=== PATIENT | female | born 1980 | race Two or more races ===

== ENCOUNTER 2025-05-21 10:00 | Emergency (ER) | payer OTHER, SELFPAY ==
--- NOTE | ~2025-05-21 | XR_ITS ---
EXAMINATION: XR CERVICAL SPINE CLINICAL INFORMATION: neck pain COMPARISON: None available. TECHNIQUE: 3 views of the cervical spine were obtained. FINDINGS: There is no significant scoliosis. There is mild reversal of the normal lordosis, nonspecific. There is no subluxation or traumatic malalignment. There is no fracture, compression deformity, or suspicious bone lesion. There is mild disc degeneration at C6-7. Disc spaces otherwise preserved. The craniocervical junction, and C1-2 articulation are intact and aligned. There is normal facet alignment. No significant facet arthropathy. There is no prevertebral soft tissue abnormality. Imaged lung apices are clear. XR/XR cervical spine 3V IMPRESSION: 1. No acute bony or soft tissue abnormality of the cervical spine. 2. Mild disc degeneration at C6-7 Electronically signed by: Joao Whittaker MD 05/21/2025 11:49 AM EDT
[2025-05-21 10:10] VITALS: BP 138/59; PULSE 63; RESP 20; TEMP 36.6; O2SAT 99; BMI 34.0
--- NOTE | 2025-05-21 10:10 | ED_ITS ---
HPI - General Adult General Stated complaint: neck spasms Related Data Allergies Allergy/AdvReac Type Severity Reaction Status Date / Time adhesive tape Allergy Rash Verified 05/21/25 10:10 bee pollen (bee stings) Allergy Rash Verified 05/21/25 10:10 latex Allergy Rash Verified 05/21/25 10:10 Course Course Course Narrative: This is an RME: Additional HPI, ROS, PE not included below will be deferred to primary provider. RME assessment and note performed by: Leonela Laguna PA-C This is a [id number], with a hx of asthma, DDD with two disectomies with spinal fusion, chronic pain, who presents to the ER with complaints of neck spasms x 3 days. Reporting right sided. Reports that she has had multiple back surgeries. Has been taking tizanidine, naproxen, neck massagers without any relief. No injury or trauma. Reporting some headache, no dizziness, blurred vision. No fevers. No midline spine tenderness. TTP overlying the right cervical paraspinous muscles Plan: Needs medications for relief Discharge Plan Discharge Print Language: [place]
--- NOTE | 2025-05-21 11:20 | ED.NECK ---
HPI - Neck Pain/Injury General Chief Complaint: Neck Pain/Injury Stated Complaint: neck spasms Time Seen by Provider: 05/21/25 11:14 Source: patient Mode of arrival: ambulatory Limitations: no limitations History of Present Illness ED Provider: WILLY Armenta HPI Narrative: This is a 44-year-old female past medical history significant for obesity who presents to the emergency department with 3 days of significant right-sided neck spasm. She reports she is extremely uncomfortable and she has tried everything that she has at home for neck spasm she has been taking tizanidine 4 mg q.8 hours, naproxen, tiger balm, applying heat with little to no relief. She tells me she has history of this in the past however this time very severe. She denies associated falls or trauma. Denies fevers, chills upper extremity clumsiness/weakness, changes in urinary/bowel habits. Related Data Previous Rx's ?Medication ?Instructions ?Recorded ketorolac 10 mg tablet 10 mg PO TID PRN pain 5 days #15 05/21/25 tabs methocarbamol 750 mg tablet 750 mg PO TID #14 tabs 05/21/25 prednisone 20 mg tablet 40 mg (2 x 20 mg) PO DAILY 5 days 05/21/25 #10 tabs Allergies Allergy/AdvReac Type Severity Reaction Status Date / Time adhesive tape Allergy Rash Verified 05/21/25 10:10 bee pollen (bee stings) Allergy Rash Verified 05/21/25 10:10 latex Allergy Rash Verified 05/21/25 10:10 Review of Systems Review of Systems: Yes all other systems are reviewed and are negative PMFSH Past Medical History Attestation statement: The following information was validated with the patient. Source: old records reviewed and nursing notes reviewed Social History Social History Smoked in Last 30 Days: No Use of substances other than those prescribed or required for medical reasons: No Advance Directives: No Advance Directives Information Provided: Yes Patient : No Physical Exam Exam: Exam: Appearance: Alert.? Oriented X3.? No acute distress.? Head: Normocephalic, atraumatic, no step-offs or deformities Eyes: Pupils equal, round and reactive to light.? ENT: Pharynx normal.? Neck: Normal inspection.? There is tenderness to palpation to bilateral paraspinous muscles in the cervical region right greater than left. Tenderness also to posterior scapula and deltoid. Negative Spurling sign. Patient has painful range of motion and reduced range of motion in all directions secondary to pain and stiffness. No meningeal signs CVS: Pulses normal.? Respiratory: No respiratory distress.? Skin: Skin warm and dry.? Normal skin color.? Normal skin turgor.? Extremities: No lower extremity edema.? No calf ttp. 5/5 strength to bilateral upper and lower extremities. Normal hand market development trainer bilaterally. No wrist drop. Negative Laverne sign. Back: No midline tenderness, no C-spine tenderness, full range of motion, no CVA tenderness bilaterally Neuro: Oriented X 3.? No motor deficit.? No sensory deficit. CN 2-12 intact Vital Signs: Vital Signs: Last Vital Signs Temp 98.5 F 05/21/25 16: Pulse 62 05/21/25 16:01 Resp 12 05/21/25 16:01 BP 129/68 05/21/25 16:01 Pulse Ox 100 05/21/25 16:01 O2 Del Method Room Air 05/21/25 16:01 BMI result Body Mass Index 34.0 vss Course Reevaluation(s) Reevaluation #1: Patient's x-ray no acute bony or soft tissue abnormality of cervical spine mild disc degeneration C6-7. Patient is still quite uncomfortable Time: 12:00 Reevaluation #2: Patient was requesting to leave however she still reports significant discomfort to her neck and spasm. She did decline the 2nd dose of Valium and Dilaudid I explained to her that this may help. She is now agreeable to this. She will get a ride home afterward Time: 15:44 Reevaluation #3: Patient feeling better. She will get a ride home. I advised her to follow up with PCP or fireworks display specialist. She may require an MRI upon further questioning she does tell me she gets neck pain and upper extremity numbness and tingling bilaterally. Time: 17:28 Medications Administered Discontinued Medications Generic Name Dose Route Start Last Admin Trade Name Freq PRN Reason Stop Dose Admin Dexamethasone Sodium Phosphate 10 mg 05/21/25 11:21 05/21/25 11:43 Dexamethasone Sod Phosphate 10 Mg/Ml Vial IVPUSH 05/21/25 11:22 10 mg ONCE ONE Administration Diazepam 2.5 mg 05/21/25 11:20 05/21/25 11:41 Diazepam 10 Mg/2 Ml Cartridge IVPUSH 05/21/25 11:21 2.5 mg STAT STA Administration Diazepam 2.5 mg 05/21/25 12:59 05/21/25 13:18 Diazepam 10 Mg/2 Ml Cartridge IVPUSH 05/21/25 13:00 Not Given STAT STA Diazepam 2.5 mg 05/21/25 15:27 05/21/25 16:02 Diazepam 10 Mg/2 Ml Cartridge IVPUSH 05/21/25 15:28 2.5 mg STAT STA Administration Hydromorphone HCl 1 mg 05/21/25 14:10 05/21/25 15:29 Hydromorphone Hcl 1 Mg/Ml Syringe IVPUSH 05/21/25 14:11 Not Given ONCE ONE Protocol Hydromorphone HCl 1 mg 05/21/25 15:27 05/21/25 16:04 Hydromorphone Hcl 1 Mg/Ml Syringe IVPUSH 05/21/25 15:28 1 mg ONCE ONE Administration Protocol Acetaminophen 1,000 mg in 100 mls @ 400 mls/hr 05/21/25 11:20 05/21/25 13:19 Ofirmev IV 05/21/25 11:34 Infused ONCE ONE Infusion Ketorolac Tromethamine 15 mg 05/21/25 11:20 05/21/25 11:43 Ketorolac Tromethamine 15 Mg/Ml Vial IVPUSH 05/21/25 11:21 15 mg ONCE ONE Administration Lidocaine 1 patch 05/21/25 11:22 05/21/25 11:50 Lidocaine 4 % Patch Adh..Patch TRANSDERMA 05/21/25 11:23 1 patch ONCE ONE Administration Protocol Methocarbamol 750 mg 05/21/25 14:40 05/21/25 15:08 Methocarbamol 750 Mg Tablet PO 05/21/25 14:41 750 mg ONCE ONE Administration Medical Decision Making Medical Decision Making MDM Narrative: 44-year-old female presents with progressively worsening neck spasms ongoing for 3 days. Physical exam Normal inspection.? There is tenderness to palpation to bilateral paraspinous muscles in the cervical region right greater than left. Tenderness also to posterior scapula and deltoid. Negative Spurling sign. Patient has painful range of motion and reduced range of motion in all directions secondary to pain and stiffness. No meningeal signs History and physical exam consistent with torticollis/cervical spasm. Unlikely cord compression, cervical myelopathy, epidural abscess. No focal neurological deficits. Plan will give IV acetaminophen dexamethasone Valium Toradol and lidocaine patch. Will obtain x-ray this see of the cervical lordosis is changed. No red flag symptoms no indication for MRI Differential Diagnosis Differential Diagnoses: The differential diagnosis associated with the presentation includes (History and physical exam consistent with torticollis/cervical spasm. Unlikely cord compression, cervical myelopathy, epidural abscess. No focal neurological deficits.) Admission/Observation Consideration of admission/observation: Escalation of care including admission/observation considered (unlikely ) Independent Interpretation I performed an independent interpretation of an: Plain X-Ray Radiology Impression Discussion of test interpretation with radiology: I have reviewed the radiologist's reading. Chronic Conditions Patient?s care impacted by: Other (obesity ) Critical Care Time Critical Care Time Critical Care Time: Yes Total Critical Care Time: 35 Attestation: I attest to this time spent taking care of the patient, obtaining history, physical, reviewing labs, imaging, treatment of patients condition +/- specialist/hospitalist consult +/- procedure Discharge Plan Discharge Clinical Impression: Torticollis, Cervical paraspinal muscle spasm Patient Disposition: Home, Self-Care Instructions: Muscle Spasm (ED) Additional Instructions: Take your medications as prescribed. If you were prescribed antibiotics today, it is important that you take your medication to their entirety, do not skip any doses, do not finish them early. Follow-up with your primary care provider this week. Return to the emergency department with new or worsening symptoms. Such as fevers, chills, chest pain, shortness of breath, nausea, vomiting, dizziness, headache, vision changes, lethargy In case of emergency call 911 I have sent you Robaxin you can take it 3 times a day, 750 mg. Please follow-up with your PCP or pain management. You may need trigger point injections or epidural injections if pain persists Do not take methocarbamol/Robaxin with tizanidine. Toradol has been sent to your pharmacy, you tolerated this well in the department. Please take this as prescribed do not take this with ibuprofen, or other NSAIDs, do not mix this with alcohol. Side effects of this medication including increased risk for bleeding and possible kidney injury. Please start her prednisone in 3 days. Prescriptions: New methocarbamol 750 mg tablet 750 mg PO TID Qty: 14 0RF prednisone 20 mg tablet 40 mg PO DAILY 5 Days Qty: 10 0RF ketorolac 10 mg tablet 10 mg PO TID PRN (Reason: pain) 5 Days Qty: 15 0RF Rx Instructions: Tolerated IM or IV in department Referrals: Physician,Unknown J [Primary Care Provider, Medical] Print Language: Danish
[2025-05-21 11:24] VITALS: BP 117/70; PULSE 58; RESP 18; TEMP 37.3; O2SAT 100
--- NOTE | 2025-05-21 11:38 | PC.NURSE ---
Pt c/o neck spasms, shoulder pain x 3 days. Pain /. Home remedies and medications ineffective. Giving meds now
[2025-05-21] MEDS: diazePAM 10 MG/2 ML CARTRIDGE 2.5 MG IVPUSH ×2 (11:41→16:02)
--- NOTE | 2025-05-21 11:46 | PC.NURSE ---
Pt reports burning for a minute in her vagina following the dexmethasone. Vallium caused dizziness.
[2025-05-21] MEDS: Lidocaine 4 % Patch ADH..PATCH 1 PATCH TRANSDERMA (11:50)
--- NOTE | 2025-05-21 13:18 | PC.NURSE ---
Pt refused more vallium because she is driving home.
[2025-05-21 13:56] VITALS: BP 115/61; PULSE 58; RESP 18; TEMP 36.8; O2SAT 98
--- NOTE | 2025-05-21 14:22 | PC.NURSE ---
Pt is nervous about taking narcotics because of the drive home. She requests a different muscle relaxer to take at home. She currently takes tizanidine 8mg at night and naproxen, but this has not been very effective. She feels slightly worse after being medicated here. Reports pressure in her head.
--- NOTE | 2025-05-21 15:11 | PC.NURSE ---
Pt ready to discharge
[2025-05-21 16:01] VITALS: BP 129/68; PULSE 62; RESP 12; TEMP 36.9; O2SAT 100
--- NOTE | 2025-05-21 17:36 | PC.NURSE ---
Pt reports head pressure is gone. Spouse will drive her home.
== END 2025-05-21 17:47 | disposition home or self-care (01) ==
PROVIDERS: Emergency Provider Emergency Medicine Emergency Medical Services
DX: M43.6 Torticollis (principal); M62.838 Other muscle spasm; M50.323 Other cervical disc degeneration at C6-C7 level; Z79.899 Other long term (current) drug therapy
CPT/HCPCS: 72040; 96365; 96366; 96375; 96376; 99284; J0131; J1100; J1171; J1885; J3360

== ENCOUNTER → 2025-05-21 11:25 | Outpatient (BNV) | payer OTHER, SELFPAY | PROVIDERS: Visit Provider Radiology Diagnostic Radiology | DX: M50.323 Other cervical disc degeneration at C6-C7 level (principal) | CPT/HCPCS: 72040 ==

== ENCOUNTER 2025-06-10 19:33 | Emergency (ER) | payer OTHER, SELFPAY ==
[2025-06-10 19:43] VITALS: BP 133/87; PULSE 79; RESP 16; TEMP 36.8; O2SAT 97; BMI 35.9
--- NOTE | 2025-06-10 19:56 | ED_ITS ---
HPI - General Adult General Chief complaint: Abdominal Pain Stated complaint: pain on back radiating to the front Time Seen by Provider: 06/10/25 21:59 Source: patient, RN notes reviewed and old records reviewed Mode of arrival: ambulatory Limitations: no limitations History of Present Illness ED Provider: Paul HARRELL narrative: 44-year-old female presents for evaluation of right lower back pain that radiates around to her abdomen. She reports a long history of chronic neck and back pain. She states that for the last few days she has had worsening right mid back pain She reports today she has been unable to stand and has significant pain with bending over or moving all She reports her pain is constant but worse with any kind of movement. She denies any GI symptoms including nausea, vomiting, diarrhea. Denies any cough or shortness of breath She does report that she has pain in the right mid back with deep breathing Denies any history of DVT, PE, she is not anticoagulated She has been treated in the past for back pain with multiple medications including Toradol, meloxicam, prednisone, oxycodone, Flexeril She has a history of kidney stones but states that this does not feel quite the same She denies any burning with urination, urinary frequency or blood in the urine Denies any recent trauma Related Data Previous Rx's ?Medication ?Instructions ?Recorded ketorolac 10 mg tablet 10 mg PO TID PRN pain 5 days #15 05/21/25 tabs methocarbamol 750 mg tablet 750 mg PO TID #14 tabs 06/05 prednisone 20 mg tablet 40 mg (2 x 20 mg) PO DAILY 5 days 05/21/25 #10 tabs diazepam 5 mg tablet (Valium) 5 mg PO BID PRN muscle s pasm #14 06/10/25 tabs Allergies Allergy/AdvReac Type Severity Reaction Status Date / Time adhesive tape Allergy Rash Verified 06/10/25 19:45 bee pollen (bee stings) Allergy Rash Verified 06/10/25 19:45 latex Allergy Rash Verified 06/10/25 19:45 sumatriptan (From Imitrex) AdvReac Unknown Verified 06/10/25 19:45 Review of Systems 2 Constitutional: Constitutional: Denies body ache(s), Denies chills, Denies fever(s) and Denies headache(s) Eyes: Eyes: Denies blurry vision ENT: Denies vertigo, Denies dizziness, Denies dry mouth and Denies headache(s) Cardiovascular: Cardiovascular: Denies chest pain and Denies dyspnea on exertion Respiratory: Respiratory: Denies cough and Denies dyspnea on exertion Gastrointestinal: Gastrointestinal: Reports abdominal pain, Denies nausea and Denies vomiting Musculoskeletal: Musculoskeletal: Reports back pain Integumentary/Breasts: Skin/Breast: Denies rash Neurologic: Denies vertigo, Denies dizziness and Denies headache(s) Psychiatric: Psychiatric: Denies anxiety PMFSH Social History Social History Alcohol intake: never Smoked in Last 30 Days: No Use of substances other than those prescribed or required for medical reasons: No Advance Directives: No Advance Directives Information Provided: No Do you have a plan to hurt others: No Plan Physical Exam ED Vital Signs: Vital Signs - 24 hr 06/10/25 19:43 06/10/25 21:31 Temperature 98.2 F 98.2 F Pulse Rate 79 68 Respiratory Rate 16 18 Blood Pressure 133/87 121/82 Pulse Oximetry 97 98 Oxygen Delivery Method Room Air Room Air BMI result Body Mass Index 35.9 Const General: healthy appearing, comfortable, no acute distress, alert and awake Nutritional Appearance: well nourished Orientation/consciousness: patient oriented x3 HENMT Head: Yes normocephalic and Yes atraumatic Eyes Eyelids: Yes eyelids normal Conjunctivae: conjunctivae normal Sclerae: sclerae normal Corneas: corneas normal Pupils: Equal, round and reactive pupils present EOM: EOMs intact bilaterally Neck Neck: Yes full ROM Resp Effort & Inspection: normal respiratory effort, able to speak in complete sentences and not labored GI Other: No tenderness to the right flank, right upper quadrant and right lower quadrant. Inspection: No distended Palpation (GI): Soft to palpation, not firm, nontender, no guarding and not rigid Back/Spine/Pelvis Other: There is tenderness in the right thoracic paraspinous region. There is tenderness in the right posterior and mid axillary line. He has no vertebral tenderness, no step-offs deformities. No crepitus over the ribs. Straight leg raise negative on right Skin General skin exam: elasticity normal Neuro General: patient oriented x3 Cranial nerves: Yes Equal, round and reactive pupils present and Yes Bilaterally intact EOM present Cognition (Neuro): normal cognition Extrem Other: Moving all extremities well without any obvious deformities Course Course Course Narrative: RME: 44-year-old female presents to ED for right upper quadrant abdominal pain radiating to the back and flank area. Patient states history of kidney stones. Patient states decrease of appetite with nausea or vomiting. Labs ordered Medications Administered Discontinued Medications Generic Name Dose Route Start Last Admin Trade Name Meghann PRN Reason Stop Dose Admin Diazepam 6 mg 06/10/25 22:46 06/10/25 23:00 Diazepam 2 Mg Tablet PO 06/10/25 22:47 6 mg ONCE ONE Administration Medical Decision Making Medical Decision Making [facility] Narrative: 44-year-old female with a history of chronic back pain presents for evaluation of back pain that radiates around her abdomen. She reports her pain does not typically radiate around to her abdomen. She has no GI or symptoms. She has tenderness to the right mid back but no tenderness to the abdomen. She had labs ordered that are unremarkable, she does not have any leukocytosis, she does have a mild anemia with a hemoglobin 11.5, no active bleeding. There was no left shift. She had chemistries ordered that did not show any concerning abnormalities, electrolytes within normal range. Renal function normal range, LFTs within normal range plan the patient is not present. Urinalysis shows trace esterase, no leukocytes, no nitrites, no blood. Given the patient's presentation, exam and lab results I feel that her pain is most likely related to musculoskeletal origin. I do not feel that any emergent imaging is indicated at this time. I discussed this with the patient and she agrees. We will treat her symptoms with diazepam. She was encouraged not to mix this with any of her other muscle relaxers at home. She will follow up with the outpatient providers Differential Diagnosis Differential Diagnoses: The differential diagnosis associated with the presentation includes Muscle strain Radiculopathy Abdominal pain Cholelithiasis Acute cholecystitis Obstructive uropathy Constipation Lab Data [facility] Lab Attestation statement: I reviewed the patient's lab results. As above 06/10/25 20:02 06/10/25 20:02 Labs: Lab Results 06/10/25 06/10/25 Range/Units 20:02 21:23 WBC 8.6 (4.8-10.8) X10*3/uL RBC 4.18 L (4.20-5.50) X10*6/uL Hgb 11.5 L (12.0-16.0) g/dl Hct 34.7 L (37.0-47.0) % MCV 83.0 (80.0-98.0) fL MCH 27.5 (27.0-33.0) pg MCHC 33.1 (31.0-35.0) g/dl RDW 14.4 (11.0-16.0) % Plt Count 289 (160-400) X10*3/uL MPV 10.5 (9.4-12.3) fL Immature Gran % (Auto) 0.2 (0.0-0.4) % Neut % (Auto) 68.3 (45-73) % Lymph % (Auto) 23.8 (20-40) % [place] % (Auto) 5.9 (2-11) % Eos % (Auto) 1.5 (0-4) % Baso % (Auto) 0.3 (0-2) % Lymph # (Auto) 2.1 (1.2-4.9) X10*3/uL [place] # (Auto) 0.5 (0.1-1.2) X10*3/uL Eos # (Auto) 0.1 (0.0-0.4) X10*3/uL Baso # (Auto) 0.0 (0.0-0.2) X10*3/uL Abs Immat Gran (auto) 0.02 (0.00-0.03) X10*3/uL Absolute Neuts (auto) 5.9 (2.0-8.3) x10*3/uL Absolute Nucleated RBC 0.000 (0.0-0.012) X10*3/uL Nucleated RBC % (auto) 0.0 (0.0-0.2) /100WBC PT 11.3 (10.9-12.4) SEC INR 1.0 (0.9-1.1) APTT 33.6 (26.7-34.1) SEC Sodium 141 (135-145) mmol/L Potassium 3.8 (3.3-5.1) mmol/L Chloride 108 (96-108) mmol/L Carbon Dioxide 26 (22-29) mmol/L Anion Gap 11 L (12-20) BUN 9 (9-16) mg/dL Creatinine 0.97 (0.5-1.4) mg/dL Estim Creat Clear Calc 84.4 Estimated GFR > 60 Random Glucose 88 (60-115) mg/dL Calcium 8.3 L (8.4-10.2) mg/dL Total Bilirubin 0.3 (0.0-1.0) mg/dL AST 23 (5-31) U/L ALT 25 (0-31) U/L Alkaline Phosphatase 64 (39-117) U/L Total Protein 6.7 (6.5-8.0) g/dL Albumin 4.2 (3.5-5.0) g/dL Lipase 29 (8-78) U/L Beta HCG, Quant < 2 mIU/mL Urine Color Yellow Urine Appearance Clear Urine pH 7.0 (5.0-9.0) Ur Specific [place] 1.015 (1.005-1.025) Urine Protein Negative (Neg-Trace) mg/dL Urine Glucose (UA) Negative (Negative) mg/dL Urine Ketones Negative (Negative) mg/dL Urine Blood Negative (Negative) Urine Nitrite Negative (Negative) Ur Leukocyte Esterase Trace H (Negative) Urine RBC 0-2 (0-2) /HPF Urine WBC 0-5 (0-5) /HPF Ur Squamous Epith Cells 3-5 (0-2) /HPF Urine Bacteria Trace (None Seen) Hyaline Casts 0-2 (0-2) /LPF Urine Test NEGATIVE (NEGATIVE) Tests considered The following testing was considered but not selected: Considered CT abdomen pelvis without contrast to evaluate for obstructive uropathy but I felt it was not indicated due to no hematuria and normal renal function and a history exam not consistent with obstructive uropathy Discharge Plan Discharge Clinical Impression: Mid back pain on right side Patient Disposition: Home, Self-Care Instructions: Back Pain (ED) Additional Instructions: Your workup in the ER today was reassuring This includes your labs, your urinalysis. There was no blood in the urine to suggest a kidney stone. Your liver enzymes were normal and less likely a gallbladder issue. I think your pain is most likely musculoskeletal in origin You may continue NSAIDs such as ibuprofen or meloxicam. You should not take more than 90 type of NSAID. Take diazepam as needed for muscle spasms. This may make you drowsy, do not drink alcohol or drive after taking it Prescriptions: New diazepam [Valium] 5 mg tablet 5 mg PO BID PRN (Reason: muscle spasm) Qty: 14 0RF No Action methocarbamol 750 mg tablet 750 mg PO TID Qty: 14 0RF prednisone 20 mg tablet 40 mg PO DAILY 5 Days Qty: 10 0RF ketorolac 10 mg tablet 10 mg PO TID PRN (Reason: pain) 5 Days Qty: 15 0RF Rx Instructions: Tolerated IM or IV in department Stand Alone Forms: Work/School Release Interventions: ED Discharge Assessment Last Done: 06/10/25 23:00 Discharge Date/Time: 06/10/25 23:50 Print Language: Slovak
[2025-06-10 20:08] LABS: MANUAL DIFF FLAG NO
[2025-06-10 20:09] LABS: Hematocrit 34.7 % (37.0-47.0); Hemoglobin 11.5 g/dl (12.0-16.0); Imm Gran Abs Auto 0.02 X10*3/uL (0.00-0.03); Imm Gran Pct Auto 0.2 % (0.0-0.4); Lymphocytes Absolute Auto 2.1 X10*3/uL (1.2-4.9); Mean Corpuscular HGB Conc 33.1 g/dl (31.0-35.0); Mean Corpuscular Hemoglobin 27.5 pg (27.0-33.0); Mean Corpuscular Volume 83.0 fL (80.0-98.0); NRBC Abs Auto 0.000 X10*3/uL (0.0-0.012); NRBC Pct Auto 0.0 /100WBC (0.0-0.2); Platelet Count 289 X10*3/uL (160-400); Red Blood Count 4.18 X10*6/uL (4.20-5.50); White Blood Count 8.6 X10*3/uL (4.8-10.8)
--- OUTSIDE RECORDS SUMMARY | 2025-06-10 20:11 | XMS_ITS | Clinical Summary ---
Author Organization [facility] Address [address] [place] [address] Care Team Providers Care Fha Underwriter Name Role Phone Corwin Ornelas MD Primary Care Provider [phone] Allergies Active Allergy Reactions Criticality Noted Date Comments Amitriptyline 09/30/2020 Etonogestrel-Ethinyl Estradiol 10/08/2019 No reaction documented Gabapentin 09/30/2020 Latex 10/08/2019 No reaction documented Shellfish Derived 10/08/2019 No reaction documented Sumatriptan 09/18/2019 Other Reaction(s): OTHER Jaw pain Medications cholecalciferol (VITAMIN D-3) 1,250 mcg (50,000 unit) capsule TAKE 1 CAPSULE BY MOUTH ONE TIME PER WEEK OTC NC BY INS 02/01/2022 Active tiZANidine (ZANAFLEX) 4 mg tablet Take 1 tablet by mouth daily as needed for Muscle spasms (back spasm). 10/13/2021 Active Active Problems Problem Noted Date Diagnosed Date Vitamin D deficiency 10/04/2020 Recurrent kidney stones 10/08/2019 Overview (08/07/2024): Q 2 months Obesity (BMI 30.0-34.9) 09/26/2019 Episode of moderate major de pression (CMS/HCC V24, CMS/HCC V28) 09/23/2019 Urinary incontinence 09/23/2019 Abnormal Pap smear of cervix 09/18/2019 Overview (08/07/2024): LEEP- 08/2016 Asthma 09/18/2019 Chronic low back pain 09/18/2019 Migraine 09/18/2019 Immunizations Immunization Administration Dates Next Due Influenza, Unspecified 05/27/2021,04/12/2020 Pneumococcal polysaccharide 23 valent (Pneumovax 23) 2yo and older 03/01/2010 Td Tetanus diptheria (Tdvax) 7yo and older 10/29 Varicella live (Varivax) 12mo and older 09/16/19 15,07/06/2014 Surgical History Surgery Date Site/Laterality Comments OTHER SURGICAL HISTORY 2012 PROCEDURE: DISKECTOMY LUMBAR SINGLE SP; COMMENT: January, and revision in Jun OTHER SURGICAL HISTORY 12/2013 PROCEDURE: LA ARTHRODESIS POSTERIOR INTERBODY 1 NTRSPC LUMBAR; COMMENT: L5/S1-- [place] Medical History Medical History Date Comments Recurrent kidney stones 10/08/2019 DX:Recur rent kidney stones; COMMENT: Q 2 months Abnormal Pap smear of cervix 09/18/2019 DX: Abnormal Pap smear of cervix; COMMENT: LEEP- 08/2016 Asthma 09/18/2019 DX:Asthma Chronic low back pain 09/18/2019 DX:Chronic low back pain Episode of moderate major de pression ([facility] V24, CMS/[facility] V28) 09/23/2019 DX:Episode of moderate nataly r depression ([facility]) Migraine 09/18/2019 DX:Migraine Obesity (BMI 30.0-34.9) 09/26/2019 DX:Obesi ty (BMI 30.0-34.9) Urinary incontinence 09/23/2019 DX:Urinary incontinence Family History Medical History Relation Name Comments Diabetes Father Heart attack Father maybe 60's Hypertension Father Rheum arthritis Father's side 1 aunt Rheum arthritis Father's side 2 cousin Diabetes Maternal Grandmother Diabetes Mother hyperlipidemia Hypertension Mother Migraines Mother Diabetes Uncle maternal Relation Name Status Comments Father Alive Father's side 1 aunt Alive Father's side 2 cousin Alive Maternal Grandmother Mother Alive Sister Alive Uncle maternal Alive Social History Tobacco Use Types Packs/Day Years Used Date Smoking Tobacco: Never Smokeless Tobacco: Never Alcohol Use Standard Drinks/Week Comments Yes 0 (1 standard drink = 0.6 oz pur e alcohol) Comments Unknown Sex and Gender Information Value Date Recorded Sex Assigned at Not on file Legal Sex Female 11:13 PM EST Gender Identity Not on file Sexual Orientation Not on file Obstetrics History Plan of Treatment Health Maintenance Due Date Last Done Comments Breast Cancer Screening 1982 Hepatitis B Vaccines (1 of 3 - 19+ 3-dose series) 2001 Cervical Cancer Screening: P ap Smear 10/30/2003 HPV Vaccines (1 - 3-dose SCD M series) 2009 Pneumococcal Vaccine: Pediatrics (0 to 5 Years) and At-Risk Patients (6 to 49 Years) (2 of 2 - PCV) 03/01/2011 03/01/2010 DTaP,Tdap,and Td Vaccines (2 - Td or Tdap) 2014 2004 HIV Screening 07/15/2022 Hepatitis C Screening 07/15/2022 Social Influencers of Health Screening 07/15/2022 Depression Screening 08/12/2024 COVID-19 Vaccine (3 - 2024-2 6 season) 2025 11/05/2020, 10/08/2020 Influenza Vaccine (#1) 2025 , 04/12/2020 RSV Immunization Adult Patients (1 - 1-dose 75+ series) 2057 Varicella Vaccines Aged Out 09/16/2014, 07/06/2014 No longer eligible based on patient's age to complete this topic HIB Vaccines Aged Out No longer eligi ble based on patient's age to complete this topic Hepatitis A Vaccines Aged Out No long er eligible based on patient's age to complete this topic IPV Vaccines Aged Out No longer eligi ble based on patient's age to complete this topic MMR Vaccines Aged Out No longer eligi ble based on patient's age to complete this topic Meningococcal ACWY Vaccine Aged Out N o longer eligible based on patient's age to complete this topic Meningococcal B Vaccine Aged Out No l onger eligible based on patient's age to complete this topic RSV Immunization Patients Under 20 months Aged Out No longer eligible b ased on patient's age to complete this topic Care Teams Fha Underwriter Relationship Specialty Start Date End Date Corwin Ornelas MD PCP - General Internal Medicine 08/22/21
--- OUTSIDE RECORDS SUMMARY | 2025-06-10 20:11 | XMS_ITS | Encounter Summary ---
Author Organization [facility] Address [address] [place] [address] Care Team Providers Care Convenience Store Clerk Name Role Phone Shira Trujillo MD Primary Care Provide r Corwin Hernandez MD Primary Care Provider [phone] Encounter Details Date Type Department Care Team Description 04/07/2020 Telephone Medicine/Pediatrics - [address] [phone] Sully Eldridge MD Social History Tobacco Use Types Packs/Day Years Used Date Smoking Tobacco: Never Smokeless Tobacco: Never Alcohol Use Standard Drinks/Week Comments Yes 0 (1 standard drink = 0.6 oz pur e alcohol) 1-2 times/month Alcohol Habits Answer Date Recorded How often do you have a drink containing alcohol ? Monthly or less 09/18/2019 How many drinks containing a lcohol do you have on a typical day when you are drinking? Not asked How often do you have six or more drinks on one occasion? Not asked Sex Assigned at Date Recorded Not on file documented as of this encounter Plan of Treatment Not on file documented as of this encounter Visit Diagnoses Not on filedocumented in this encounter Care Teams Convenience Store Clerk Relationship Specialty Start Date End Date Shira Trujillo MD PCP - General Internal Medicine 07/10/19 Corwin Ornelas MD [address] [place] [id number] PCP - General Internal Medicine 08/22/21 documented as of this encounter
--- OUTSIDE RECORDS SUMMARY | 2025-06-10 20:11 | XMS_ITS | Encounter Summary ---
Author Organization [facility] Address [address] [place] [address] Care Team Providers Care Generator Operator Straight Bevel Gear Name Role Phone Corwin Ornelas MD Primary Care Provider [phone] Reason for Visit * Reason Onset Date Comments Form 10/06/2021 Encounter Details Date Type Department Care Team Description 10/06/2021 Pt. Non Urgent Medical Question Adult Medicine [address] [id number] Corwin Ornelas MD [address] [place] [address] [id number] Social History Tobacco Use Types Packs/Day Years Used Date Smoking Tobacco: Never Smokeless Tobacco: Never Alcohol Use Standard Drinks/Week Comments Yes 0 (1 standard drink = 0.6 oz pur e alcohol) Occasional Alcohol Habits Answer Date Recorded How often do you have a drink containing alcohol ? Monthly or less 09/18/2019 How many drinks containing a lcohol do you have on a typical day when you are drinking? Not asked How often do you have six or more drinks on one occasion? Not asked Sex Assigned at Date Recorded Not on file COVID-19 Exposure Response Date Recorded In the last month, have you been in contact with someone who was confirmed or suspected to have Coronavirus / COVID-19? No / Unsure 09/14/2021 3:43 PM EST documented as of this encounter Plan of Treatment Not on file documented as of this encounter Visit Diagnoses Not on filedocumented in this encounter Care Teams Generator Operator Straight Bevel Gear Relationship Specialty Start Date End Date Corwin Ornelas MD [address] [place] [id number] PCP - General Internal Medicine 08/22/21 documented as of this encounter
--- OUTSIDE RECORDS SUMMARY | 2025-06-10 20:11 | XMS_ITS | Encounter Summary ---
Author Organization [facility] Address [address] [place] [address] Care Team Providers Care Piercing Machine Operator Name Role Phone Shira Trujillo MD Primary Care Provide Corwin Don MD Primary Care Provider [phone] Encounter Details Date Type Department Care Team Description 11/12/2019 [facility] Medical Records [address] [place] [id number] Abstract, Provider Social History Tobacco Use Types Packs/Day Years [...] on filedocumented in this encounter Care Teams Piercing Machine Operator Relationship Specialty Start Date End Date Shira Trujillo MD PCP - General Internal Medicine 07/10/19 Corwin Ornelas MD [address] [place] [phone] PCP - General Internal Medicine 08/22/21 documented as of this encounter
--- OUTSIDE RECORDS SUMMARY | 2025-06-10 20:11 | XMS_ITS | Encounter Summary ---
Author Organization [facility] Address [address] [place] [address] Care Team Providers Care Costume Rental Clerk Name Role Phone Shira Trujillo MD Primary Care Provide Corwin Don MD Primary Care Provider [phone] Encounter Details Date Type Department Care Team Description 05/05/2020 Pt. Non Urgent Medic al Question Adult Medicine - [address] [address] Elena Levy PA-C Social History Tobacco Use Types Packs/Day Years [...] have Coronavirus / COVID-19? No / Unsure 04/13/2020 10:09 AM EDT documented as of this encounter Progress Notes * Radha Bravo L.P.N. - 05/05/2020 10:44 AM EDTFrom: Jacinto Callejas To: Elena Levy PA-C Sent: 05/05/2020 10:43 AM EDT Subject: No energy Good morning Elena When I went to my last visit I made the decision to stop the Cymbalta due to all the overall symptoms I was having with no answers. I went through the withdrawals which was absolutely horrible. I feel no energy, I cry all day, I feel like I'm gaining weight I just want to s leep. Please advise as What I should do. I know I want to do things natural but I can't be like this all day. documented in this encounter Plan of Treatment Not on file documented as of this encounter Visit Diagnoses Not on filedocumented in this encounter Care Teams Costume Rental Clerk Relationship Specialty Start Date End Date Shira Trujillo MD PCP - General Internal Medicine 07/10/19 Corwin Ornelas MD [address] [place] [id number] PCP - General Internal Medicine 08/22/21 documented as of this encounter
--- OUTSIDE RECORDS SUMMARY | 2025-06-10 20:11 | XMS_ITS | Encounter Summary ---
Author Organization [facility] Address [address] [place] [address] Care Team Providers Care Customer Experience Analyst Name Role Phone Shira Trujillo MD Primary Care Provide Corwin Don MD Primary Care Provider [phone] Encounter Details Date Type Department Care Team Description 04/07/2020 Pt. Non Urgent Medical Question Medicine/Pediatrics - [address] [phone] Sully Eldridge MD Social History Tobacco Use [...] on file documented as of this encounter Progress Notes * Estela Allen M.A. - 04/07/2020 10:51 AM EDTFrom: Jacinto Callejas To: Sully Eldridge MD Sent: 04/07/2020 10:36 AM EDT Subject: Chest pain I doesn't go away which is insane. I've been lying down just tired and super uncomfortable. My training manager needs the New Covid-19 test results the other one is from March 10 documented in this encounter Plan of Treatment Not on file documented as of this encounter Visit Diagnoses Not on filedocumented in this encounter Care Teams Customer Experience Analyst Relationship Specialty Start Date End Date Shira Trujillo MD PCP - General Internal Medicine 07/10/19 Corwin Ornelas MD [address] [place] [id number] PCP - General Internal Medicine 08/22/21 documented as of this encounter
--- OUTSIDE RECORDS SUMMARY | 2025-06-10 20:11 | XMS_ITS | Encounter Summary ---
Author Organization [facility] Address [address] [place] [address] Care Team Providers Care Touch Up Painter Name Role Phone Shira Trujillo MD Primary Care Provide Corwin Don MD Primary Care Provider [phone] Encounter Details Date Type Department Care Team Description 03/31/2020 Pt. Non Urgent Medic al Question Adult Medicine - [address] [address] Elena Levy PA-C Social History Tobacco Use [...] Progress Notes * Radha Bravo L.P.N. - 03/31/2020 8:47 AM EDTFrom: Jacinto Callejas To: Elena Levy PA-C Sent: 03/31/2020 7:29 AM EDT Subject: Difficulty breathing Good morning I've been having trouble breathing at night I woke up last night choking and wheezing. I'm not surewhat is going on I only take the Cymbalta and tizidine. Please advise documented in this encounter Plan of Treatment Not on file documented as of this encounter Visit Diagnoses Not on filedocumented in this encounter Care Teams Touch Up Painter Relationship Specialty Start Date End Date Shira Trujillo MD PCP - General Internal Medicine 07/10/19 Corwin Ornelas MD [address] [place] [id number] PCP - General Internal Medicine 08/22/21 documented as of this encounter
--- OUTSIDE RECORDS SUMMARY | 2025-06-10 20:11 | XMS_ITS | Encounter Summary ---
Author Organization [facility] Address [address] [place] [address] Care Team Providers Care Skin Fitter Name Role Phone Shira Trujillo MD Primary Care Provide Corwin Don MD Primary Care Provider [phone] Reason for Visit * Reason Onset Date Comments refill request 01/18/2020 Encounter Details Date Type Department Care Team Description 01/18/2020 Refill Adult Medicine [address] [address] Shira Trujillo MD refill request Social History Tobacco Use Types Packs/Day Years [...] on file documented as of this encounter Miscellaneous Notes * Telephone Encounter - Nikhil Arita M.A. - 01/19/2020 2:01 PM EDT Requested to soon * Telephone Encounter - Abril Gibson - 01/18/2020 1:04 PM EDT PATIENT STATED PREDNSONE NOT WORKING Patient would like script to be: E-PRESCRIBED/FAXED TO PHARMACY WHEN WAS THE PATIENT'S LAST APPOINTMENT IN ADULT MEDICINE? 01/05/2020 WHEN WAS THE LAST TIME THE PATIENT SAW THEIR PCP? Same as above Does patient have an upcoming appointment? No-patient refused appointment, will call back to book appointment (THE MEDICATION REQUESTED IS ON THE MED LIST ABOVE) All of the medications requested were on the CURRENT MEDS list Did you check the Pharmacy information above?: YES Patient wants: 30 -day supply Is this a mail order prescription request ? NO If the refill is from a FAXED refill request what is the RX # listed on the fax? N/A Patients current insurance carrier is: Payor: [employer] / Plan: PPO $25 GENTRY 1500 / Product Type: PPO [id number] documented in this encounter Plan of Treatment Not on file documented as of this encounter Visit Diagnoses Not on filedocumented in this encounter Care Teams Skin Fitter Relationship Specialty Start Date End Date Shira Trujillo MD PCP - General Internal Medicine 07/10/19 Corwin Ornelas MD [address] [place] [phone] PCP - General Internal Medicine 08/22/21 documented as of this encounter
--- OUTSIDE RECORDS SUMMARY | 2025-06-10 20:11 | XMS_ITS | Encounter Summary ---
Author Organization [facility] Address [address] [place] [address] Care Team Providers Care Human Resource Manager Name Role Phone Shira Trujillo MD Primary Care Provide Corwin Don MD Primary Care Provider [phone] Encounter Details Date Type Department Care Team Description 06/14/2021 Pt. Non Urgent Medic al Question Adult Medicine - [address] [address] Elena Levy PA-C Social History Tobacco Use [...] have Coronavirus / COVID-19? No / Unsure 06/14/2021 3:07 PM EDT documented as of this encounter Miscellaneous Notes * Telephone Encounter - Angelica Martinez - 06/14/2021 12:48 PM EDTFrom: Jacinto Callejas To: Marty Levy Sent: 06/14/2021 12:21 PM EDT Subject: Right lower pain radiating down my right leg Good afternoon Is there anyway I can be seen by someone today I can't take the pain. I'm experiencing sharp pain from my lower back radiating across my right side down my leg. documented in this encounter Plan of Treatment Not on file documented as of this encounter Visit Diagnoses Not on filedocumented in this encounter Care Teams Human Resource Manager Relationship Specialty Start Date End Date Shira Trujillo MD PCP - General Internal Medicine 07/10/19 Corwin Ornelas MD [address] [place] [id number] PCP - General Internal Medicine 08/22/21 documented as of this encounter
[2025-06-10 20:19] LABS: INTERNATIONAL NORM RATIO 1.0 (0.9-1.1); Prothrombin Time 11.3 SEC (10.9-12.4)
[2025-06-10 20:21] LABS: Partial Thromboplastin Time 33.6 SEC (26.7-34.1)
[2025-06-10 20:30] LABS: Alanine Aminotransferase 25 U/L (0-31); Albumin Level 4.2 g/dL (3.5-5.0); Alkaline Phosphatase 64 U/L (39-117); Anion Gap 11 (12-20); Aspartate Amino Transferase 23 U/L (5-31); Blood Urea Nitrogen 9 mg/dL (9-16); Calcium 8.3 mg/dL (8.4-10.2); Carbon Dioxide 26 mmol/L (22-29); Chloride 108 mmol/L (96-108); Creatinine Clr Calc Pharmacy 84.4; Estimated Glomerular Filt Rate > 60; Lipase 29 U/L (8-78); Potassium 3.8 mmol/L (3.3-5.1); Sodium 141 mmol/L (135-145); Total Protein 6.7 g/dL (6.5-8.0)
[2025-06-10 21:31] VITALS: BP 121/82; PULSE 68; RESP 18; TEMP 36.8; O2SAT 98
[2025-06-10 21:35] LABS: Appearance Urine Clear; Glucose Urine UA Negative (Negative); PH 7.0 (5.0-9.0); Specific Gravity - Urine 1.015 (1.005-1.025); UMIC TRIGGER UACC YES
[2025-06-10 21:36] LABS: UPreg QC Valid YES
--- NOTE | 2025-06-10 21:41 | PC.NURSE ---
PT coming from triage reporting 03/21 RUQ/flank pain described as sharp/pressure radiating to the midline lumbar region w/ worsening on movement onset yesterday. PT denies N/V/D although reports some constipation last BM today. No visual abnormalities to ABD or distention/rigidity. PT denies any urinary issues. VSS.
[2025-06-10 23:00] VITALS: BP 117/51; PULSE 78; RESP 16; TEMP 36.8; O2SAT 96
== END 2025-06-10 23:50 | disposition home or self-care (01) ==
PROVIDERS: Physician Assistant; Emergency Provider Student in an Organized Health Care Education/Training Program
DX: M54.6 Pain in thoracic spine (principal); R10.9 Unspecified abdominal pain; M54.50 Low back pain, unspecified
CPT/HCPCS: 36415; 80053; 81001; 81025; 83690; 84702; 85025; 85610; 85730; 99283; 99284